=== PATIENT | female | born 1985 | race American Indian/Alaskan Native ===

== ENCOUNTER 2020-05-27 11:08 | Emergency (ER) | payer SELFPAY ==
[2020-05-27 12:27] VITALS: BP 115/50
--- NOTE | 2020-05-27 12:27 | Event Note ---
ED Screening Note Date of service: 05/27/20 Time: 12:26 ED Screening Note: 35-year-old -[place] female presents to the emergency room as a right- handed patient for right shoulder pain since Sunday. 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 On Sunday she recalls injuring it when she was lifting a package at work and tunnel lifted with her right shoulder. Patient states she has been taken ibuprofen without much relief. Last dose was 8 AM. Patient denies any diabetes or high blood pressure. Last menstrual period was 05/26/2020. This initial assessment/diagnostic orders/clinical plan/treatment(s) is/are subject to change based on patients health status, clinical progression and re- assessment by fellow clinical providers in the ED. Further treatment and workup at subsequent clinical providers discretion. Patient/guardian urged not to elope from the ED as their condition may be serious if not clinically assessed and managed. Initial orders include:
--- NOTE | 2020-05-27 12:53 | XRay Report ---
RIGHT SHOULDER 3 VIEWS INDICATION: Right shoulder pain. COMPARISON: None. IMPRESSION: No acute osseous or soft tissue abnormality. No significant DJD. Signer Name: Juan David Shay Jr, MD Signed: 05/27/2020 12:49 PM Workstation Name: [id number]
--- NOTE | 2020-05-27 14:36 | Emergency Department Report ---
Upper Extremity - [facility] Chief Complaint: Extremity Injury, Upper Stated Complaint: RT SHOULDER PAIN Time Seen by Provider: 05/27/20 12:22 Upper Extremity: Right Shoulder Occurred When: 4 Days Mechanism: Unsure Symptoms: Yes Pain with Movement, Yes Limited Range of Movement, No Deformity, No Numbness, No Weakness, No Swelling, No Bruising/Ecchymosis, No Laceration or Abrasion Other History: 35-year-old -[place] female presents to the emergency room as a right-handed patient for right shoulder pain since Sunday. 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 On Sunday she recalls injuring it when she was lifting a package at work and tunnel lifted with her right shoulder. Patient states she has been taken ibuprofen without much relief. Last dose was 8 AM. Patient denies any diabetes or high blood pressure. Last menstrual period was 05/26/2020. ED Review of Systems ROS: Stated complaint: RT SHOULDER PAIN Other details as noted in HPI ED Past Medical Hx - Past Medical History Previous Medical History?: No - Surgical History Past Surgical History?: No - Social History Smoking Status: Never Smoker Substance Use Type: None - Medications Home Medications: Home Medications Medication Instructions Recorded Confirmed Last Taken Type Multivit-Min/Iron/Folic Acid/K 1 each PO QDAY 05/27/20 05/27/20 Unknown History [One Daily Women's Multivitamin] Upper Extremity Exam - Exam General: Vital signs noted. No distress. Alert and acting appropriately. Head and Torso: No HEENT Abnormality, No Neck Tenderness, No Chest/Lungs Abnormality, No Abdominal Tenderness, No Back Tenderness Shoulder Exam: Yes Shoulder Tenderness, Yes Clavicle Tenderness, Yes Normal Range of Motion in Shoulder, Yes AC Joint Tenderness, No Shoulder Deformity Arm Exam: No Arm/Humerus Tenderness, No Arm Deformity Elbow: No Elbow Tenderness, No Normal Range of Motion in Elbow, No Elbow Deformity Forearm: No Forearm Tenderness, No Forearm Deformity, No Pain with Pronation, No Pain with Supination Wrist: Yes Normal ROM in Wrist, No Wrist Tenderness, No Wrist Deformity, No Snuffbox Tenderness, No Pain with Axial Thumb Compression Hand: Yes Normal ROM in Digit(s), No Hand Tenderness, No Hand Deformity, No Digit Tenderness, No Digit(s) Deformity, No Tendon Dysfunction ED Course Vital Signs 05/27/20 11:28 Temperature 98.6 F Pulse Rate 62 Respiratory 16 Rate Blood Pressure 115/50 O2 Sat by Pulse 99 Oximetry ED Medical Decision Making - Radiology Data Radiology results: report reviewed [facility] [address] [place] [address] XRay Report Signed Patient: MARCO MESSINA MR#: [id number] : 1985 Acct:[id number] Age/Sex: 35 / F ADM Date: 05/27/20 Loc: ED Attending Dr: Ordering Physician: VERITO MARI Date of Service: 05/27/20 Procedure(s): XR shoulder 2+V RT Accession Number(s): [id number] cc: VERITO MARI Fluoro Time In Minutes: RIGHT SHOULDER 3 VIEWS INDICATION: Right shoulder pain. COMPARISON: None. IMPRESSION: No acute osseous or soft tissue abnormality. No significant DJD. Signer Name: Juan David Shay Jr, MD Signed: 05/27/2020 12:49 PM Workstation Name: [id number] Transcribed By: TTR Dictated By: JUAN DAVID SHAY JR, MD Electronically Authenticated By: JUAN DAVID SHAY JR, MD Signed Date/Time: 05/27/20 1249 DD/ 1248 TD/TT: - Medical Decision Making 35-year-old -[place] female presents to the emergency room as a right- handed patient for right shoulder pain since Sunday. 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 On Sunday she recalls injuring it when she was lifting a package at work and tunnel lifted with her right shoulder. Patient states she has been taken ibuprofen without much relief. Last dose was 8 AM. Patient denies any d iabetes or high blood pressure. Last menstrual period was 05/26/2020. Critical care attestation.: If time is entered above; I have spent that time in minutes in the direct care of this critically ill patient, excluding procedure time. ED Disposition Clinical Impression: Right anterior shoulder pain Disposition: DC- TO HOME OR SELFCARE Is pt being admited?: No Does the pt Need Aspirin: No Condition: Stable Instructions: Shoulder Pain, [id number] Additional Instructions: X-ray was negative for any acute abnormalities. I recommend Tylenol ibuprofen or Aleve for pain management. Also recommend for you to follow-up with a orthopedic provider if no improvement after for 5 days. Referrals: PRIMARY CARE, [Primary Care Provider] - 3-5 Days COCO RANGEL MD [Staff Physician] - 3-5 Days [facility] [Provider Group] - 3-5 Days Forms: Work/School Release Form(ED)
== END 2020-05-27 14:46 | disposition home or self-care (01) ==
LOC: ED 11:08
DX: M25.511 Pain in right shoulder (principal); Z79.899 Other long term (current) drug therapy
CPT/HCPCS: 99283

== ENCOUNTER 2020-06-12 08:56 | Emergency (ER) | payer SELFPAY ==
[2020-06-12 09:47] VITALS: BP 125/68
--- NOTE | 2020-06-12 09:48 | Emergency Department Report ---
ED Female HPI - General Chief complaint: Urogenital-Female Stated complaint: PAINFUL URINATION Time Seen by Provider: 06/12/20 09:45 Source: patient Mode of arrival: Ambulatory Limitations: No Limitations - History of Present Illness Initial comments: There is a pleasant 35-year-old female who presents to the emergency department the chief complaint of dysuria, urinary frequency and vaginal discharge over the past 3 days. She denies any abdominal pain, fever, chills, night sweats, headache, dizziness, blurry vision, nausea, vomiting, diarrhea, chest pain or shortness of breath, weakness or any other associated symptoms. She states she is in a monogamous relationship with the same man for the past 14 years but due to the discharge she did not want to be checked for STDs. She denies any pelvic pain. - Related Data Home Medications Medication Instructions Recorded Confirmed Last Taken Multivit-Min/Iron/Folic Acid/K 1 each PO QDAY 05/27/20 05/27/20 Unknown [One Daily Women's Multivitamin] Previous Rx's Medication Instructions Recorded Last Taken Type metroNIDAZOLE [Flagyl TAB] 500 mg PO Q8HR #21 tablet 06/12/20 Unknown Rx Allergies Allergy/AdvReac Type Severity Reaction Status Date / Time No Known Allergies Allergy Verified 05/27/20 11:26 ED Review of Systems ROS: Stated complaint: PAINFUL URINATION Other details as noted in HPI Comment: All other systems reviewed and negative Constitutional: denies: chills, fever Eyes: denies: eye pain, eye discharge, vision change ENT: denies: ear pain, throat pain Respiratory: denies: cough, shortness of breath, wheezing Cardiovascular: denies: chest pain, palpitations Endocrine: no symptoms reported Gastrointestinal: denies: abdominal pain, nausea, diarrhea Genitourinary: as per HPI, dysuria, frequency, discharge. denies: urgency Musculoskeletal: denies: back pain, joint swelling, arthralgia Skin: denies: rash, lesions Neurological: denies: headache, weakness, paresthesias Psychiatric: denies: anxiety, depression Hematological/Lymphatic: denies: easy bleeding, easy bruising ED Past Medical Hx - Past Medical History Previous Medical History?: Yes Additional medical history: fibroids, Vaginal delivery x 2 - Surgical History Past Surgical History?: No - Social History Smoking Status: Never Smoker Substance Use Type: None - Medications Home Medications: Home Medications Medication Instructions Recorded Confirmed Last Taken Type Multivit-Min/Iron/Folic Acid/K 1 each PO QDAY 05/27/20 05/27/20 Unknown History [One Daily Women's Multivitamin] metroNIDAZOLE [Flagyl TAB] 500 mg PO Q8HR #21 tablet 06/12/20 Unknown Rx ED Physical Exam - General Limitations: No Limitations General appearance: alert, in no apparent distress - Head Head exam: Present: atraumatic, normocephalic - Eye Eye exam: Present: normal appearance, PERRL, EOMI Pupils: Present: normal accommodation - ENT ENT exam: Present: normal exam, normal orophraynx, mucous membranes moist - Neck Neck exam: Present: normal inspection, full ROM. Absent: tenderness, meningismus - Respiratory Respiratory exam: Present: normal lung sounds bilaterally. Absent: respiratory distress, wheezes, rales, rhonchi, stridor - Cardiovascular Cardiovascular Exam: Present: regular rate, normal rhythm, normal heart sounds. Absent: systolic murmur, diastolic murmur, rubs, gallop - GI/Abdominal GI/Abdominal exam: Present: soft, normal bowel sounds. Absent: distended, ten derness, guarding, rebound, rigid - Extremities Exam Extremities exam: Present: normal inspection, full ROM, normal capillary refill. Absent: tenderness - Back Exam Back exam: Present: normal inspection, full ROM. Absent: tenderness, CVA tenderness (R), CVA tenderness (L) - Neurological Exam Neurological exam: Present: alert, oriented X3, normal gait - Psychiatric Psychiatric exam: Present: normal affect, normal mood - Skin Skin exam: Present: warm, dry, intact, normal color. Absent: rash ED Course Vital Signs 06/12/20 09:43 Temperature 98.4 F Pulse Rate 57 L Respiratory 20 Rate Blood Pressure 125/68 O2 Sat by Pulse 95 Oximetry - Reevaluation(s) Reevaluation #1: 06/12/20 09:48 Patient nontoxic in no acute distress. Vital signs are stable. Sirs criteria is negative. She has no symptoms of systemic infection. Her abdominal exam was benign. Educated her that she need to follow-up with the health department for an STD work-up I will treat her with Rocephin, azithromycin, metronidazole and check her urine for UTI. Urine and urinalysis were ordered. ED Medical Decision Making - Lab Data Lab Results 06/12/20 Range/Units Unknown Urine Color Yellow (Yellow) Urine Turbidity Clear (Clear) Urine pH 8.0 H (5.0-7.0) Ur Specific [place] 1.019 (1.003-1.030) Urine Protein <15 mg/dl (Negative) mg/dL Urine Glucose (UA) Neg (Negative) mg/dL Urine Ketones Neg (Negative) mg/dL Urine Blood Neg (Negative) Urine Nitrite Neg (Negative) Urine Bilirubin Neg (Negative) Urine Urobilinogen < 2.0 (<2.0) mg/dL Ur Leukocyte Esterase Neg (Negative) Urine WBC (Auto) < 1.0 (0.0-6.0) /HPF Urine RBC (Auto) 1.0 (0.0-6.0) /HPF U Epithel Cells (Auto) 6.0 (0-13.0) /HPF Urine Mucus Few /HPF Urine HCG, Qual Negative (Negative) - Medical Decision Making Urine was relatively normal. Patient is nontoxic in no acute distress. Vital signs are stable. Her test was negative. She was concerned about possible exposure to an STD due to the discharge and educated her that we do not check for STDs and she can follow-up with the health department. We will treat her with Rocephin, azithromycin and discharged with metronidazole to treat for trichomonas or bacterial vaginosis and recommend follow-up with health department for further testing. Also recommend she be seen for testing for HIV, hepatitis, syphilis or any others possible exposure. She instructed return to ER with any change or worsening symptoms. She had no abdominal pain neck mass patient PID or TOA unlikely at this time. She verbalized understanding the diagnosis, treatment plan and follow-up instructions and all of her questions were answered. - Differential Diagnosis UTI, PID, cervicitis Critical care attestation.: If time is entered above; I have spent that time in minutes in the direct care of this critically ill patient, excluding procedure time. ED Disposition Clinical Impression: Vaginal discharge Disposition: DC- TO HOME OR SELFCARE Is pt being admited?: No Condition: Stable Instructions: Vaginitis, Ytnj-[id number] Prescriptions: metroNIDAZOLE [Flagyl TAB] 500 mg PO Q8HR #21 tablet Referrals: PRIMARY MD OVI [Primary Care Provider] - 3-5 Days PENNY HARRIS MD [Staff Physician] - 3-5 Days [facility] [Provider Group] - 3-5 Days [facility] [Outside] - 3-5 Days Time of Disposition: 11:51
[2020-06-12 11:06] LABS: Bilirubin,Urine NEG (Negative); Blood,Urine NEG (Negative); Color,Urine Yellow (Yellow); Mucus,Urine FEW /HPF; Protein,Urine <15 mg/dL mg/dL (Negative); Urobilinogen,Urine < 2.0 mg/dL (<2.0); WBC,Urine < 1.0 /HPF (0.0-6.0)
[2020-06-12 11:14] LABS: HCG Qualitative,Urine Negative (Negative)
[2020-06-12] MEDS ORDERED: AZITHROMYCIN 250 MG TAB PO ONE (11:40)
[2020-06-12] MEDS ORDERED: LIDOCAINE-MPF (1%) 10 MG/1 ML VIAL 5 ML INFILTRATI ONE (11:40)
== END 2020-06-12 13:32 | disposition home or self-care (01) ==
LOC: ED 08:56
DX: N89.8 Other specified noninflammatory disorders of vagina (principal); Z79.899 Other long term (current) drug therapy
CPT/HCPCS: 81001; 81025; 96372; 99283; J0696

== ENCOUNTER 2021-07-04 17:47 | Emergency (ER) | payer SELFPAY ==
[2021-07-04 19:44] VITALS: BP 141/77
== END 2021-07-05 12:35 | disposition left against medical advice (07) ==
LOC: ED 17:47
DX: R05.9 Cough, unspecified (principal); R50.9 Fever, unspecified; Z53.21 Procedure and treatment not carried out due to patient leaving prior to being seen by health care provider

== ENCOUNTER 2021-07-06 09:04 | Emergency (ER) | payer SELFPAY ==
[2021-07-06] MEDS ORDERED: guaiFENesin DM 200/20 MG ORAL LIQD 10 ML PO ONE (11:23)
--- NOTE | 2021-07-06 11:34 | Emergency Department Report ---
- General Chief Complaint: Nausea/Vomiting/Diarrhea Stated Complaint: VOMITTING/DIARRHEA/BODY ACHES Time Seen by Provider: 07/06/21 11:17 Source: patient Mode of arrival: Ambulatory Limitations: No Limitations - History of Present Illness Initial Comments: 36-year-old -[place] female presents to the emergency room complaining of nasal congestion, cough, headache body aches, sneezing runny nose vomiting diarrhea. She admits that she has been exposed to COVID. She states yesterday she went to try to get a COVID test and it came back inconclusive. Patient states that the test was self swabbing. Patient not sure if she did not correct. Patient states that her symptoms started on Sunday night. Patient reports has been taking Tylenol DayQuil and NyQuil and Airborne. MD Complaint: fever, cough, sore throat, rhinorrhea, nasal congestion, sinus pain Onset/Timin -: days(s) Consistency: constant Improves With: nothing Worsens With: nothing Context: sick contacts Associated Symptoms: fever, chills, myalgias, headache, rhinorrhea, nasal congestion, sore throat, cough, nausea, vomiting, diarrhea Treatments Prior to Arrival: "cold medicine" - Related Data Home Medications Medication Instructions Recorded Confirmed Last Taken Multivit-Min/Iron/Folic Acid/K 1 each PO QDAY 05/27/20 05/27/20 Unknown [One Daily Women's Multivitamin] Previous Rx's Medication Instructions Recorded Last Taken Type metroNIDAZOLE [Flagyl TAB] 500 mg PO Q8HR #21 tablet 06/12/20 Unknown Rx Fexofenadine HCl [Aller-Fex] 1 tab PO BID #20 tab 07/06/21 Unknown Rx guaiFENesin/DEXTROMETHORPHAN 5 ml PO QID PRN #177 ml 07/06/21 Unknown Rx [Mucinex Fast-Max Dm Max Liquid] Allergies Allergy/AdvReac Type Severity Reaction Status Date / Time No Known Allergies Allergy Verified 05/27/20 11:26 ED Review of Systems ROS: Stated complaint: VOMITTING/DIARRHEA/BODY ACHES Other details as noted in HPI Comment: All other systems reviewed and negative ED Past Medical Hx - Past Medical History Previous Medical History?: No Additional medical history: fibroids, Vaginal delivery x 2 - Social History Smoking Status: Never Smoker Substance Use Type: None - Medications Home Medications: Home Medications Medication Instructions Recorded Confirmed Last Taken Type Multivit-Min/Iron/Folic Acid/K 1 each PO QDAY 05/27/20 05/27/20 Unknown History [One Daily Women's Multivitamin] metroNIDAZOLE [Flagyl TAB] 500 mg PO Q8HR #21 tablet 06/12/20 Unknown Rx Fexofenadine HCl [Aller-Fex] 1 tab PO BID #20 tab 07/06/21 Unknown Rx guaiFENesin/DEXTROMETHORPHAN 5 ml PO QID PRN #177 ml 07/06/21 Unknown Rx [Mucinex Fast-Max Dm Max Liquid] ED Physical Exam - General Limitations: No Limitations General appearance: alert, in no apparent distress - Head Head exam: Present: atraumatic, normocephalic - Eye Eye exam: Present: normal appearance - ENT ENT exam: Present: mucous membranes moist - Neck Neck exam: Present: normal inspection - Respiratory Respiratory exam: Present: normal lung sounds bilaterally. Absent: respiratory distress - Cardiovascular Cardiovascular Exam: Present: regular rate, normal rhythm. Absent: systolic murmur, diastolic murmur, rubs, gallop - GI/Abdominal GI/Abdominal exam: Present: soft, normal bowel sounds - Extremities Exam Extremities exam: Present: normal inspection - Back Exam Back exam: Present: normal inspection - Neurological Exam Neurological exam: Present: alert, oriented X3 - Psychiatric Psychiatric exam: Present: normal affect, normal mood - Skin Skin exam: Present: warm, dry, intact, normal color. Absent: rash ED Course Vital Signs 07/06/21 07/06/21 11:04 12:22 Temperature 98.0 F 98.9 F Pulse Rate 85 78 Respiratory 20 16 Rate Blood Pressure 128/89 Blood Pressure 134/89 [Right] O2 Sat by Pulse 100 98 Oximetry ED Medical Decision Making - Radiology Data Radiology results: report reviewed [facility] [address] [place] [address] XRay Report Signed Patient: MARCO MESSINA MR#: [id number] : 1985 Acct:[id number] Age/Sex: 36 / F ADM Date: 07/06/21 Loc: ED Attending Dr: Ordering Physician: VERITO MARI Date of Service: 07/06/21 Procedure(s): XR chest routine 2V Accession Number(s): [id number] cc: VERITO MARI Fluoro Time In Minutes: CHEST 2 VIEWS INDICATION / CLINICAL INFORMATION: cough. COMPARISON: None available. FINDINGS: SUPPORT DEVICES: None. HEART / MEDIASTINUM: No significant abnormality. LUNGS / PLEURA: No significant pulmonary or pleural abnormality. No pneumothorax. ADDITIONAL FINDINGS: No significant additional findings. IMPRESSION: 1. No acute findings. Signer Name: Bernardo Combs MD Signed: 07/06/2021 11:38 AM Workstation Name: [id number] Transcribed By: BRET Dictated By: Bernardo Combs MD Electronically Authenticated By: Bernardo Combs MD Signed Date/Time: 07/06/21 113 DD/ 36 TD/TT: Print Cancel - Medical Decision Making 36-year-old -[place] female presents to the emergency room complaining of nasal congestion, cough, headache body aches, sneezing runny nose vomiting diarrhea. She admits that she has been exposed to COVID. She states yesterday she went to try to get a COVID test and it came back inconclusive. Patient states that the test was self swabbing. Patient not sure if she did not correct. Patient states that her symptoms started on Sunday night. Patient reports has been taking Tylenol DayQuil and NyQuil and Airborne. CXR and Robituusin DM has been ordered. Critical care attestation.: If time is entered above; I have spent that time in minutes in the direct care of this critically ill patient, excluding procedure time. ED Disposition Clinical Impression: Viral upper respiratory tract infection with cough Disposition: HOME / SELF CARE / HOMELESS Is pt being admited?: No Does the pt Need Aspirin: No Condition: Stable Instructions: Viral Respiratory Infection Test Additional Instructions: Your symptoms appear most consistent with a nonspecific viral syndrome. However, given this current pandemic, COVID-19 is in the differential of possibilities. Despite your previous negative COVID-19 test, I do recommend repeat outpatient Covid 19 testing. In the meantime, isolate/quarantine yourself and stay away from anyone who is elderly, immunocompromised or chronically ill. You can use ibuprofen every 6-8 hours and Tylenol every 4-8 hours, using the dosing on the back of the bottle, as needed for any fever or body aches. Return to the emergency department with any worsening of your symptoms, development of chest pain or shortness of breath, or with any acute distress. Prescriptions: Fexofenadine HCl [Aller-Fex] 1 tab PO BID #20 tab guaiFENesin/DEXTROMETHORPHAN [Mucinex Fast-Max Dm Max Liquid] 5 ml PO QID PRN #177 ml PRN Reason: Cough Referrals: Your, primary care provider. [Other] - 3-5 Days Forms: Work/School Release Form(ED) Time of Disposition: 11:54
--- NOTE | 2021-07-06 11:42 | XRay Report ---
CHEST 2 VIEWS INDICATION / CLINICAL INFORMATION: cough. COMPARISON: None available. FINDINGS: SUPPORT DEVICES: None. HEART / MEDIASTINUM: No significant abnormality. LUNGS / PLEURA: No significant pulmonary or pleural abnormality. No pneumothorax. ADDITIONAL FINDINGS: No significant additional findings. IMPRESSION: 1. No acute findings. Signer Name: Bernardo Combs MD Signed: 07/06/2021 11:38 AM Workstation Name: [id number]
[2021-07-06 12:24] VITALS: BP 134/89
== END 2021-07-06 12:22 | disposition home or self-care (01) ==
LOC: ED 09:04
DX: J06.9 Acute upper respiratory infection, unspecified (principal)
CPT/HCPCS: 71046; 99283

== ENCOUNTER 2021-08-10 11:03 | Emergency (ER) | payer MEDICAID ==
--- NOTE | 2021-08-10 16:18 | Emergency Department Report ---
ED General Adult HPI - General Chief complaint: Pain General Stated complaint: RASH/CHEST/TOOTHACHE Source: patient Mode of arrival: Ambulatory Limitations: No Limitations - History of Present Illness Initial comments: Patient is a 36-year-old -[place] female with no past medical history presents to the ED with complaint of acute onset persistent painful erythematous maculopapular vesicular rash on left chest wall that spreads to the left mid posterior thoracic area through the dermatome for the last 3 days. Patient states that she has not been able to sleep because of worsening pain. Patient also complains of right mandibular premolar molar tooth ache with swollen gum. Patient denies fever, chills, nausea and vomiting, dizziness, syncope, change in vision, cough, sore throat, traumatic injury, abdominal pain, diarrhea, change in vision or headache. MD Complaint: Swollen, painful erythematous maculopapular rash on left lateral chest wall -: Sudden, days(s) (3) Location: chest (left-lateral chest wall spreading to the left mid-posterior thoracic area), back (Left lateral mid posterior thoracic area) Radiation: back (Left lateral mid posterior thoracic area) Severity scale (0 -10): 8 Quality: burning, aching, sharp Consistency: constant Improves with: none Worsens with: movement Associated Symptoms: chest pain (Left lateral chest wall pain due to erythematous maculopapular vesicular rash), rash (Erythematous maculopapular painful rash spreading from left lateral chest wall to the mid posterior th oracic area). denies: denies other symptoms, cough, diaphoresis, fever/chills, headaches, loss of appetite, malaise, nausea/vomiting, seizure, shortness of breath, syncope, weakness Treatments Prior to Arrival: none - Related Data Home Medications Medication Instructions Recorded Confirmed Last Taken Multivit-Min/Iron/Folic Acid/K 1 each PO QDAY 05/27/20 05/27/20 Unknown [One Daily Women's Multivitamin] Previous Rx's Medication Instructions Recorded Last Taken Type metroNIDAZOLE [Flagyl TAB] 500 mg PO Q8HR #21 tablet 06/12/20 Unknown Rx Fexofenadine HCl [Aller-Fex] 1 tab PO BID #20 tab 07/06/21 Unknown Rx guaiFENesin/DEXTROMETHORPHAN 5 ml PO QID PRN #177 ml 07/06/21 Unknown Rx [Mucinex Fast-Max Dm Max Liquid] Clindamycin [Clindamycin CAP] 300 mg PO Q8H #30 cap 08/10/21 Unknown Rx Gabapentin 300 mg PO BID PRN #24 cap 08/10/21 Unknown Rx Ibuprofen [Motrin] 600 mg PO Q8H PRN #30 tablet 08/10/21 Unknown Rx Valacyclovir HCl [Valacyclovir] 1,000 mg PO Q8H #30 tab 08/10/21 Unknown Rx hydrOXYzine PAMOATE [Vistaril] 25 mg PO Q6HR PRN #40 capsule 08/10/21 Unknown Rx oxyCODONE /ACETAMINOPHEN [Percocet 1 tab PO Q6HR PRN #12 tablet 08/10/21 Unknown Rx 5/325] Allergies Allergy/AdvReac Type Severity Reaction Status Date / Time No Known Allergies Allergy Verified 05/27/20 11:26 ED Review of Systems ROS: Stated complaint: RASH/CHEST/TOOTHACHE Other details as noted in HPI Constitutional: denies: chills, fever Eyes: denies: eye pain, eye discharge, vision change ENT: dental pain (Right mandibular premolar and molar tooth ache with swollen gums). denies: ear pain, throat pain Respiratory: denies: cough, shortness of breath, wheezing Cardiovascular: denies: chest pain, palpitations Endocrine: no symptoms reported Gastrointestinal: denies: abdominal pain, nausea, vomiting, diarrhea Genitourinary: denies: urgency, dysuria, discharge Musculoskeletal: denies: back pain, joint swelling, arthralgia Skin: rash (Erythematous maculopapular vesicular painful lesions from the left chest wall to the left lateral mid posterior thoracic area), lesions, change in color, pruritus Neurological: denies: headache, weakness, paresthesias Psychiatric: denies: anxiety, depression Hematological/Lymphatic: denies: easy bleeding, easy bruising ED Past Medical Hx - Past Medical History Previous Medical History?: No Additional medical history: fibroids, Vaginal delivery x 2 - Surgical History Past Surgical History?: No - Social History Smoking Status: Never Smoker - Medications Home Medications: Home Medications Medication Instructions Recorded Confirmed Last Taken Type Multivit-Min/Iron/Folic Acid/K 1 each PO QDAY 05/27/20 05/27/20 Unknown History [One Daily Women's Multivitamin] metroNIDAZOLE [Flagyl TAB] 500 mg PO Q8HR #21 tablet 06/12/20 Unknown Rx Fexofenadine HCl [Aller-Fex] 1 tab PO BID #20 tab 07/06/21 Unknown Rx guaiFENesin/DEXTROMETHORPHAN 5 ml PO QID PRN #177 ml 07/06/21 Unknown Rx [Mucinex Fast-Max Dm Max Liquid] Clindamycin [Clindamycin CAP] 300 mg PO Q8H #30 cap 08/10/21 Unknown Rx Gabapentin 300 mg PO BID PRN #24 cap 08/10/21 Unknown Rx Ibuprofen [Motrin] 600 mg PO Q8H PRN #30 tablet 08/10/21 Unknown Rx Valacyclovir HCl [Valacyclovir] 1,000 mg PO Q8H #30 tab 08/10/21 Unknown Rx hydrOXYzine PAMOATE [Vistaril] 25 mg PO Q6HR PRN #40 capsule 08/10/21 Unknown Rx oxyCODONE /ACETAMINOPHEN [Percocet 1 tab PO Q6HR PRN #12 tablet 08/10/21 Unknown Rx 5/325] ED Physical Exam - General Limitations: No Limitations General appearance: alert, in no apparent distress - Head Head exam: Present: atraumatic, normocephalic, normal inspection - Eye Eye exam: Present: normal appearance, PERRL, EOMI Pupils: Present: normal accommodation - ENT ENT exam: Present: mucous membranes moist, TM's normal bilaterally, normal external ear exam, other (Swollen, tender right mandibular gingiva with premolar and molar teeth tenderness) - Neck Neck exam: Present: normal inspection, full ROM. Absent: tenderness, lympha denopathy - Respiratory Respiratory exam: Present: normal lung sounds bilaterally. Absent: respiratory distress, wheezes, rales, rhonchi, chest wall tenderness, accessory muscle use, decreased breath sounds, prolonged expiratory - Cardiovascular Cardiovascular Exam: Present: regular rate, normal rhythm, normal heart sounds. Absent: systolic murmur, diastolic murmur, rubs, gallop - GI/Abdominal GI/Abdominal exam: Present: soft, normal bowel sounds. Absent: tenderness, guarding, rebound, hyperactive bowel sounds, hypoactive bowel sounds, organomegaly, bruit - Extremities Exam Extremities exam: Present: normal inspection, full ROM, normal capillary refill. Absent: tenderness - Back Exam Back exam: Present: normal inspection, full ROM. Absent: tenderness, CVA tenderness (R), CVA tenderness (L), muscle spasm, paraspinal tenderness, vertebral tenderness - Neurological Exam Neurological exam: Present: alert, oriented X3, CN II-XII intact, normal gait, reflexes normal - Psychiatric Psychiatric exam: Present: normal affect, normal mood, anxious - Skin Skin exam: Present: warm, dry, intact, rash (Erythematous maculopapular tender vesicular rashes dermatomally on left lateral chest wall spreading to the left mid posterior thoracic area), erythema, vesicles. Absent: normal color ED Medical Decision Making - Medical Decision Making This is a 36-year-old -[place] female with no past medical history presents to the ED with complaint of acute onset persistent painful erythematous maculopapular vesicular rash on left chest wall that spreads to the left mid posterior thoracic area through the dermatome for the last 3 days. Patient states that she has not been able to sleep because of worsening pain. Patient also complains of right mandibular premolar molar tooth ache with swollen gum. In the ED, patient is alert and oriented x3 and is not in any distress. Based on the history and physical exam findings, the patient symptoms are likely due to shingles outbreak on the left lateral chest wall that crosses the dermatome to the left mid posterior thoracic area without crossing the spine. Patient was therefore discharged home on pain medications and antiviral as well as antibiotics for dental abscess and the patient was advised to follow-up with her primary care physician in 7 to 10 days for reevaluation or return to the ED immediately if symptoms get worse. - Differential Diagnosis Shingles outbreak; dental abscess; gingivitis; dental caries; Critical care attestation.: If time is entered above; I have spent that time in minutes in the direct care of this critically ill patient, excluding procedure time. ED Disposition Clinical Impression: Dental abscess, Chronic gingivitis, Dental caries Shingles outbreak Qualifiers: Herpes zoster complications: without complications Qualified Code(s): B02.9 - Zoster without complications Disposition: 01 HOME / SELF CARE / HOMELESS Is pt being admited?: No Does the pt Need Aspirin: No Condition: Stable Instructions: Dental Abscess, [id number], Dental Extraction, [id number], Shingles, [id number], Trench Mouth Additional Instructions: The rash identified on your chest wall is due to a shingles outbreak. Therefore take medication with food, drink plenty of fluids and follow-up with your primary care physician in 7 to 10 days for reevaluation. Return to the ED immediately if symptoms get worse. Prescriptions: Clindamycin [Clindamycin CAP] 300 mg PO Q8H #30 cap Gabapentin 300 mg PO BID PRN #24 cap PRN Reason: Neuropathy Ibuprofen [Motrin] 600 mg PO Q8H PRN #30 tablet PRN Reason: Pain oxyCODONE /ACETAMINOPHEN [Percocet 5/325] 1 tab PO Q6HR PRN #12 tablet PRN Reason: Pain Valacyclovir HCl [Valacyclovir] 1,000 mg PO Q8H #30 tab hydrOXYzine PAMOATE [Vistaril] 25 mg PO Q6HR PRN #40 capsule PRN Reason: Itching Referrals: PENNY HARRIS MD [Primary Care Provider] - 7-10 days [facility] [Outside] - 7-10 days Forms: Work/School Release Form(ED) Time of Disposition: 16:24 Print Language: GREEK
[2021-08-10 16:56] VITALS: BP 114/60
== END 2021-08-10 16:56 | disposition home or self-care (01) ==
LOC: ED 11:03
DX: K04.7 Periapical abscess without sinus (principal); K05.10 Chronic gingivitis, plaque induced; K02.9 Dental caries, unspecified; B02.9 Zoster without complications
CPT/HCPCS: 99282